=== PATIENT | male | born 1970 | race Caucasian/White ===

== ENCOUNTER 2016-10-27 17:53 | Emergency (ER) | payer BC, OTHER ==
[2016-10-27 18:12] VITALS: BP 146/77; PULSE 80; TEMP 98.3; BMI 31.9
[2016-10-27] MEDS ORDERED: KETOROLAC TROMETHAMINE 60 MG/2 ML VIAL IM ONE (18:44)
[2016-10-27] MEDS ORDERED: KETOROLAC TROMETHAMINE 60 MG/2 ML VIAL ONE (18:46)
--- NOTE | 2016-10-27 18:53 | PDOC ---
History of Present Illness - General Chief Complaint: Injury Stated Complaint: PCP SENT/INJURY Time Seen by Provider: 10/27/16 18:35 History Source: Patient Exam Limitations: No Limitations - History of Present Illness Initial Comments: 10/27/16 18:45 Patient works at [employer], while lifting a heavy air conditioner he lost his balance causing his left arm to hyper extend at elbow and shoulder, patient states he heard a snap and had acute onset of pain and immobility to his elbow and bicep area. States is mildly numb to his fingers but is resolving. No neck or back injury, medications for relief of pain. Was seen at an urgent care, provided a sling, and told to come to emergency department for evaluation Severity: reports: mild, moderate Pain Location: reports: upper extremity (left ) Modifying Factors: improves with: None, immobilization Associated Symptoms (Fall): denies symptoms Past History - Travel Traveled outside of the country in the last 30 days: No Close contact w/someone who was outside of country & ill: No - Past Medical History Allergies/Adverse Reactions: Allergies Allergy/AdvReac Type Severity Reaction Status Date / Time No Known Allergies Allergy Verified 10/27/16 18:12 Home Medications: Ambulatory Orders Oxycodone HCl/Acetaminophen [Percocet 5-325 mg Tablet -] 1 - 2 tab PO Q4H PRN # 14 tablet MDD 6 10/27/16 Other medical history: PATIENT DENIES PAST MEDICAL HISTORY - Psycho/Social/Smoking Cessation Hx Suicidal Ideation: No Smoking History: Never smoked Hx Alcohol Use: Yes (OCCASIONALLY) Drug/Substance Use Hx: No Review of Systems - Review of Systems Able to Perform ROS?: Yes Is the patient limited Frisian proficient: Yes Constitutional: Yes: Symptoms Reported, See HPI, Malaise HEENTM: No: Symptoms Reported Musculoskeletal: Yes: Symptoms Reported, Joint Pain, Joint Swelling (left elbow) Integumentary: Yes: Symptoms Reported Neurological: Yes: Symptoms reported, See HPI. No: Numbness All Other Systems: Reviewed and Negative *Physical Exam - Vital Signs Last Vital Signs Temp Pulse Resp BP Pulse Ox 98.3 F 80 18 146/77 96 10/27/16 18:09 10/27/16 18:09 10/27/16 18:09 10/27/16 18:09 10/27/16 18:09 - Physical Exam General Appearance: Yes: Appropriately Dressed, Apparent Distress HEENT: positive: IRINA, Normal ENT Inspection, TMs Normal, Pharynx Normal Neck: positive: Supple. negative: Tender, Lymphadenopathy (R), Lymphadenopathy (L) Respiratory/Chest: positive: Lungs Clear, Normal Breath Sounds Gastrointestinal/Abdominal: positive: Soft. 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 Has a bogginess and defect at inferior insertion of bicep tendons primarily to the radial aspect and belly, able to contract the medial aspect belly of bicep muscle. Has strong grasp however that motion also reproduces pain at elbow joint. Shoulder is intact, without tenderness reproduced along clavicle or scapula. Range of motion is limited secondary to the pain in inferior humerus area.). 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 Patient clinically correlates. Will sling, have follow-up with orthopedist, and provided #14 Percocet tablets for pain relief. *DC/Admit/Observation/Transfer Diagnosis at time of Disposition: Biceps rupture, distal Qualifiers: Encounter type: initial encounter Laterality: left Qualified Code(s): S46.212A - Strain of muscle, fascia and tendon of other parts of biceps, left arm, initial encounter - Discharge Dispostion Disposition: HOME Condition at time of disposition: Stable Admit: No - Referrals Referrals: Jair Melendrez MD [Primary Care Provider] - Diallo Urbina MD [Staff Physician] - - Patient Instructions Printed Discharge Instructions: DI for Tendinitis Additional Instructions: Rest, ice to area on and off for 15 minutes 4-6 times a day Avoid heavy lifting or exercise until pain and swelling is resolved or until further directed Keep area highly elevated to reduce swelling Use splints/Shakeel wrap as directed Followup with orthopedist in one to 2 days if not improving, if significantly improved may wait one week for followup with orthopedist May use ibuprofen 2-200 mg tablets every 6 hours as needed for pain - Post Discharge Activity Work/School Note: Back to Work
== END 2016-10-27 19:33 | disposition home or self-care (01) ==
LOC: JER 17:53 → JERFT 17:53
PROC: 3E0233Z Introduction of Anti-inflammatory into Muscle, Percutaneous Approach (ICD-10-PCS; principal; 2016-10-27)
DX: S46.212A Strain of muscle, fascia and tendon of other parts of biceps, left arm, initial encounter (principal); X50.0XXA Overexertion from strenuous movement or load, initial encounter; X50.9XXA Other and unspecified overexertion or strenuous movements or postures, initial encounter; Y93.89 Activity, other specified; Y92.59 Other trade areas as the place of occurrence of the external cause; Y99.0 Civilian activity done for income or pay
CPT/HCPCS: 73070-TC-LT; 99281-25